=== PATIENT | female | born 1980 | race Two or more races ===

== ENCOUNTER 2021-08-25 15:55 | Inpatient (IN) | payer MEDICAID, OTHER ==
[~2021-08-25] VITALS: Ht 162.6 cm; Wt 100.1 kg
[2021-08-25 16:31] LABS: Basophils # (auto) 0 10 ^3/uL (0-0.2); Basophils % (auto) 0.6 % (0.0-2.0); Eosinophils # (auto) 0.2 10 ^3/uL (0-0.8); Eosinophils % (auto) 1.8 % (0.0-7.0); Hematocrit 43.2 % (36.0-46.0); Hemoglobin 14.3 g/dL (12.2-16.2); Lymphocytes # (auto) 1.8 10 ^3/uL (0.4-5.4); Lymphocytes % (auto) 20.9 % (10.0-50.0); Mean Corpuscular Hemoglobin 27.8 pg (28.0-32.0); Mean Corpuscular Hgb Conc. 33.2 g/dL (32.0-36.0); Mean Corpuscular Volume 83.8 fL (80.0-100.0); Monocytes # (auto) 0.5 10 ^3/uL (0-1.3); Monocytes % (auto) 5.6 % (0.0-12.0); Neutrophils # (auto) 5.9 10 ^3/uL (1.6-8.6); Neutrophils % (auto) 71.1 % (37.0-80.0); Nucleated Red Blood Cells % 0.1 %; Red Blood Cells 5.15 10^6/uL (4.0-5.20); Red Cell Distribution Width 14.1 % (11.8-14.3); White Blood Cell 8.4 10^3/uL (4.4-10.8)
[2021-08-25 16:46] LABS: Albumin 3.4 g/dL (3.4-5.0); Calcium 8.6 mg/dL (8.5-10.1); Potassium 4.1 mmol/L (3.5-5.1)
[2021-08-25 16:51] LABS: BUN/Creatinine Ratio 10.3; Bilirubin, Total 0.2 mg/dL (0.2-1.0); Total Protein 7.6 g/dL (6.4-8.2)
[2021-08-25] MEDS ORDERED: MORPHINE SULFATE INJ 2 MG/ml SYRG IV ONE ×2 (20:30→22:45)
[2021-08-25] MEDS ORDERED: ALPRAZolam 0.5 MG TAB PO ONE (22:45)
[2021-08-26] VITALS (7 sets, daily range): BP systolic 123–150; BP diastolic 78–96
[2021-08-26] MEDS ORDERED: ASPirin 81 mg TAB PO ONE (02:30)
[2021-08-26] MEDS ORDERED: ENOXAPARIN SOD 80 MG/0.8ML SYRINGE SC ONE (02:30)
[2021-08-26] MEDS ORDERED: NTG 0.1MG/HR TOPICAL PATCH TD ONE (02:30)
[2021-08-26] MEDS ORDERED: MORPHINE SULFATE INJ 2 MG/ml SYRG IV ONE (02:30)
[2021-08-26] MEDS ORDERED: NITROGLYCERIN 0.4 MG SL TAB SL PRN (02:45)
[2021-08-26] MEDS ORDERED: ONDANSETRON HCL 4 MG/2 ML VIAL IV PRN (02:45)
[2021-08-26] MEDS ORDERED: NITROGLYCERIN 0.2MG/HR TOPICAL PATCH TD ONE (02:45)
[2021-08-26] MEDS ORDERED: MORPHINE SULFATE INJ 2 MG/ml SYRG IV PRN (02:45)
[2021-08-26] MEDS ORDERED: hydrALAZINE HCL 20 MG/ML VL IV PRN (03:00)
[2021-08-26 04:16] LABS: Basophils # (auto) 0 10 ^3/uL (0-0.2); Basophils % (auto) 0.4 % (0.0-2.0); Eosinophils # (auto) 0.2 10 ^3/uL (0-0.8); Eosinophils % (auto) 2.8 % (0.0-7.0); Hematocrit 38.8 % (36.0-46.0); Hemoglobin 13.2 g/dL (12.2-16.2); Lymphocytes # (auto) 2.5 10 ^3/uL (0.4-5.4); Lymphocytes % (auto) 33.6 % (10.0-50.0); Mean Corpuscular Hemoglobin 28.7 pg (28.0-32.0); Mean Corpuscular Hgb Conc. 34.1 g/dL (32.0-36.0); Mean Corpuscular Volume 84.2 fL (80.0-100.0); Monocytes # (auto) 0.4 10 ^3/uL (0-1.3); Monocytes % (auto) 5.6 % (0.0-12.0); Neutrophils # (auto) 4.3 10 ^3/uL (1.6-8.6); Neutrophils % (auto) 57.6 % (37.0-80.0); Nucleated Red Blood Cells % 0.1 %; Red Blood Cells 4.61 10^6/uL (4.0-5.20); Red Cell Distribution Width 13.8 % (11.8-14.3); White Blood Cell 7.5 10^3/uL (4.4-10.8)
[2021-08-26 04:30] LABS: INR 1.03 (0.9-1.15)
[2021-08-26 04:39] LABS: Chloride 108 mmol/L (98-107); Potassium 3.4 mmol/L (3.5-5.1); Sodium 140 mmol/L (136-145)
[2021-08-26 04:47] LABS: Anion Gap 8 (5-15); BUN/Creatinine Ratio 17.6; Blood Alcohol < 3.0 mg/dL (0-5); Blood Urea Nitrogen 12 mg/dL (7-18); Calcium 8.3 mg/dL (8.5-10.1); Carbon Dioxide 24 mmol/L (21-32); Cholesterol 167 mg/dL (< 200); GFR African American 123 mL/min; GFR Non-African American 101 mL/min; Glucose 121 mg/dL (74-106); HDL Cholesterol 40 mg/dL (40-59); LDL Cholesterol 111 mg/dL (< 100); Triglycerides 174 mg/dL (< 150)
[2021-08-26] MEDS ORDERED: POTASSIUM CHL 20 Meq TABLET PO ONE (05:45)
[2021-08-26] MEDS ORDERED: BUSP10TA31 PO (06:26)
[2021-08-26] MEDS ORDERED: DIVA500T2 PO (06:26)
[2021-08-26] MEDS ORDERED: DIPH25CA66 PO (06:26)
[2021-08-26] MEDS: HYDROcodone-ACET 5/325MG TAB PO PRN ×2 (12:36→18:20)
[2021-08-26] MEDS ORDERED: FURO1TAB33 PO (17:15)
[2021-08-26] MEDS ORDERED: ASPI-325 PO (17:15)
[2021-08-26] MEDS ORDERED: PROP20TA73 PO (17:15)
[2021-08-26] MEDS ORDERED: SACU1TAB PO (17:15)
[2021-08-26] MEDS ORDERED: CLOP75TA70 PO (17:15)
[2021-08-26 19:23] LABS: Free T4 (Free Thyroxine) 1.18 ng/dL (0.89-1.76); T3 Total 1.51 ng/mL (0.60-1.81)
[2021-08-26] MEDS ORDERED: ATORVASTATIN 20 MG TAB PO SCH (22:00)
[2021-08-26] MEDS ORDERED: SACUBITRIL-VALSARTAN 24mg/26mg TAB PO SCH (22:00)
[2021-08-26] MEDS: SACUBITRIL-VALSARTAN 24mg/26mg TAB PO SCH (22:02)
[2021-08-26] MEDS: PROPRANOLOL HCL 20 MG TAB PO SCH (22:03)
[2021-08-27 05:00] VITALS: BP 100/59
[2021-08-27 06:51] LABS: Basophils # (auto) 0 10 ^3/uL (0-0.2); Basophils % (auto) 0.6 % (0.0-2.0); Eosinophils # (auto) 0.1 10 ^3/uL (0-0.8); Hematocrit 40.6 % (36.0-46.0); Hemoglobin 13.6 g/dL (12.2-16.2); Lymphocytes # (auto) 1.9 10 ^3/uL (0.4-5.4); Mean Corpuscular Hgb Conc. 33.6 g/dL (32.0-36.0); Mean Corpuscular Volume 83.2 fL (80.0-100.0); Monocytes # (auto) 0.4 10 ^3/uL (0-1.3); Monocytes % (auto) 5.5 % (0.0-12.0); Neutrophils # (auto) 5.4 10 ^3/uL (1.6-8.6); Neutrophils % (auto) 68.9 % (37.0-80.0); Nucleated Red Blood Cells % 0.1 %; Red Blood Cells 4.88 10^6/uL (4.0-5.20); Red Cell Distribution Width 13.9 % (11.8-14.3); White Blood Cell 7.9 10^3/uL (4.4-10.8)
[2021-08-27 07:04] LABS: Potassium 3.7 mmol/L (3.5-5.1)
[2021-08-27 07:14] LABS: Albumin 3.1 g/dL (3.4-5.0); BUN/Creatinine Ratio 15.3; Bilirubin, Total 0.4 mg/dL (0.2-1.0); Calcium 8.7 mg/dL (8.5-10.1); Total Protein 6.9 g/dL (6.4-8.2)
[2021-08-27 09:00] VITALS: BP 115/76
[2021-08-27] MEDS ORDERED: ASPirin 81 mg TAB PO SCH ×2 (10:00)
[2021-08-27] MEDS ORDERED: CLOPIDOGREL BISULFATE 75 MG TAB PO SCH (10:00)
[2021-08-27] MEDS: SACUBITRIL-VALSARTAN 24mg/26mg TAB PO SCH (10:00)
[2021-08-27] MEDS: PROPRANOLOL HCL 20 MG TAB PO SCH (10:00)
[2021-08-27 13:00] VITALS: BP 134/90
[2021-08-27 13:23] VITALS: BP 115/76
[2021-08-27] MEDS: HYDROcodone-ACET 5/325MG TAB PO PRN (14:05)
[2021-08-27 17:00] VITALS: BP 117/78
== END 2021-08-27 17:00 | disposition home health service (06) | DRG 198 ==
LOC: ER 15:55 → TELE 08-26 02:44 → TELE-CENTR 08-26 05:20
PROVIDERS: ADMIT Registered Nurse; ATTEND Internal Medicine
DX: R07.9 Chest pain, unspecified (principal); I25.2 Old myocardial infarction; I50.23 Acute on chronic systolic (congestive) heart failure; I11.0 Hypertensive heart disease with heart failure; E05.90 Thyrotoxicosis, unspecified without thyrotoxic crisis or storm; F41.9 Anxiety disorder, unspecified; Z20.822 Contact with and (suspected) exposure to COVID-19; E66.01 Morbid (severe) obesity due to excess calories; Z88.8 Allergy status to other drugs, medicaments and biological substances; Z68.37 Body mass index [BMI] 37.0-37.9, adult
CPT/HCPCS: 36415; 71045; 76536; 80048; 80053; 80061; 80320; 83036; 83880; 84439; 84443; 84480; 84484; 85025; 85610; 93005; 93306; 96372; 96374; 96376; G0378; J2405